=== PATIENT | male | born 1980 | race Caucasian/White ===

== ENCOUNTER 2023-08-15 06:04 | Emergency (ER) | payer MEDICAID ==
[~2023-08-15] VITALS: Ht 177.8 cm; Wt 117.9 kg
[2023-08-15] MEDS ORDERED: OXYC-133 PO (06:22)
[2023-08-15] MEDS ORDERED: ATOR10TA PO (06:22)
[2023-08-15] MEDS ORDERED: GABA-532 PO (06:22)
[2023-08-15] MEDS ORDERED: GABA-536 PO (06:22)
[2023-08-15] MEDS ORDERED: KETOROLAC TROMETHAMINE 60 MG INJ IM ONE (06:57)
[2023-08-15] MEDS: KETOROLAC TROMETHAMINE 60 MG INJ IM ONE (07:04)
[2023-08-15] MEDS ORDERED: LORAZEPAM 1 MG TABLET ONE (07:12)
[2023-08-15] MEDS ORDERED: OXYCODONE/APAP 5-325 MG TABLET ONE ×2 (07:28→12:37)
[2023-08-15] MEDS ORDERED: GABAPENTIN 100 MG CAPSULE ONE (07:28)
[2023-08-15] MEDS: GABAPENTIN 100 MG CAPSULE PO ONE (07:30)
[2023-08-15] MEDS: OXYCODONE/APAP 5-325 MG TABLET PO ONE ×2 (07:30→11:15)
[2023-08-15] MEDS: LORAZEPAM 0.5 MG TABLET PO ONE (07:31)
[2023-08-15] MEDS ORDERED: DEXAMETHASONE SOD PHOSPHATE 4 MG INJ ONE (09:57)
[2023-08-15] MEDS ORDERED: ONDANSETRON 4 MG/2 ML VIAL ONE (10:43)
[2023-08-15] MEDS ORDERED: MORPHINE SULFATE 2 MG/1 ML DISP.SYRIN ONE ×2 (10:43→12:51)
[2023-08-15] MEDS ORDERED: MORPHINE SULFATE 4 MG/1 ML DISP.SYRIN ONE (12:50)
[2023-08-15] MEDS: MORPHINE SULFATE 4 MG/1 ML DISP.SYRIN IV ONE (12:51)
[2023-08-15 12:58] LABS: BASOPHILS # (AUTO) 0.1 K/UL (0.0-0.2); BASOPHILS % (AUTO) 0.5 % (0.0-2.0); EOSINOPHILS % (AUTO) 0.2 % (0.0-7.0); HEMATOCRIT 45.1 % (36.7-47.1); HEMOGLOBIN 15.1 g/dL (12.5-16.3); LYMPHOCYTES # (AUTO) 1.5 K/uL (0.8-4.8); LYMPHOCYTES % (AUTO) 16.4 % (20.5-51.5); MEAN CORPUSCULAR HGB CONC 34 g/dL (32.5-36.3); MEAN CORPUSCULAR VOLUME 89.2 fL (73.0-96.2); MONOCYTES # (AUTO) 0.4 K/uL (0.1-1.30); MONOCYTES % (AUTO) 4.8 % (0.0-11.0); NEUTROPHILS # (AUTO) 7.3 K/uL (1.8-8.9); NEUTROPHILS % (AUTO) 78.1 % (38.5-71.5); PLATELET COUNT (AUTO) 295 K/uL (152-348); RED BLOOD CELL COUNT(AUTO) 5.05 MIL/uL (4.06-5.63); WHITE BLOOD COUNT (AUTO) 9.4 K/uL (3.6-10.2)
[2023-08-15 13:01] LABS: ALBUMIN 4.2 g/dL (3.4-5.0); BILIRUBIN,TOTAL 1.5 mg/dL (0.2-1.0); CREATININE 0.8 mg/dL (0.6-1.3); POTASSIUM 4.4 mmol/L (3.5-5.1); TOTAL PROTEIN, SERUM 7.9 g/dL (6.4-8.2)
[2023-08-15 13:02] LABS: CALCIUM 9.5 mg/dL (8.5-10.1)
[2023-08-15] MEDS ORDERED: OXYC-128 PO (15:22)
[2023-08-15] MEDS ORDERED: IBUP-1955 PO (15:22)
[2023-08-15] MEDS ORDERED: LORA0.5T48 PO (15:39)
[2023-08-15 15:57] VITALS: BP 133/70; TEMP 98; O2SAT 99
== END 2023-08-15 16:04 | disposition home or self-care (01) ==
LOC: ER 06:04
DX: M54.50 Low back pain, unspecified (principal); E78.5 Hyperlipidemia, unspecified; Z79.899 Other long term (current) drug therapy
CPT/HCPCS: 99284; 96374; 97161; 97530; 97116; 80061; 80053; 85025; 36415; 96372; J1100; J1885; J2405; J2270 ×3; A4606; A4663

== ENCOUNTER 2023-09-09 00:01 | Emergency (ER) | payer BC, MEDICAID ==
[~2023-09-09] VITALS: Ht 177.8 cm; Wt 113.4 kg
[~2023-09-09 00:01] MED LIST: ATOR10TA PO; GABA-532 PO; GABA-536 PO; IBUP-1955 PO; LORA0.5T48 PO; OXYC-128 PO; OXYC-133 PO
[2023-09-09] MEDS ORDERED: ASPIRIN 81 MG TAB.CHEW ONE (00:25)
[2023-09-09] MEDS ORDERED: NITROGLYCERIN OINT 1 GM PACKET TP ONE (00:25)
[2023-09-09] MEDS ORDERED: NITROGLYCERIN 0.4 MG/TAB BOTTLE SL ONE (00:25)
[2023-09-09] MEDS: NITROGLYCERIN 0.4 MG/TAB BOTTLE SL ONE ×2 (00:31→02:19)
[2023-09-09] MEDS: NITROGLYCERIN OINT 1 GM PACKET TP ONE (00:31)
[2023-09-09] MEDS: ASPIRIN 81 MG TAB.CHEW PO ONE (00:31)
[2023-09-09] MEDS ORDERED: ACETAMINOPHEN 500 MG TABLET ONE ×2 (00:33→03:48)
[2023-09-09] MEDS: ACETAMINOPHEN 500 MG TABLET PO ONE ×2 (00:37→04:06)
[2023-09-09 00:43] LABS: BASOPHILS # (AUTO) 0.1 K/UL (0.0-0.2); BASOPHILS % (AUTO) 0.6 % (0.0-2.0); DIFFERENTIAL COMMENT 1; EOSINOPHILS # (AUTO) 0.1 K/uL (0.0-0.7); EOSINOPHILS % (AUTO) 1.3 % (0.0-7.0); HEMATOCRIT 40.7 % (36.7-47.1); HEMOGLOBIN 13.9 g/dL (12.5-16.3); LYMPHOCYTES # (AUTO) 1.9 K/uL (0.8-4.8); LYMPHOCYTES % (AUTO) 20.9 % (20.5-51.5); MEAN CORPUSCULAR HEMOGLOBIN 30.1 uug (23.8-33.4); MEAN CORPUSCULAR HGB CONC 34 g/dL (32.5-36.3); MEAN CORPUSCULAR VOLUME 88.1 fL (73.0-96.2); MONOCYTES # (AUTO) 0.9 K/uL (0.1-1.30); MONOCYTES % (AUTO) 10.1 % (0.0-11.0); NEUTROPHILS % (AUTO) 67.1 % (38.5-71.5); PLATELET COUNT (AUTO) 358 K/uL (152-348); RED BLOOD CELL COUNT(AUTO) 4.62 MIL/uL (4.06-5.63); RED CELL DISTRIBUTION WIDTH 12.1 % (12.1-16.2); WHITE BLOOD COUNT (AUTO) 8.9 K/uL (3.6-10.2)
[2023-09-09 00:51] LABS: CALCIUM 9.3 mg/dL (8.5-10.1); CARBON DIOXIDE 30 mmol/L (21-32); CHLORIDE 102 mmol/L (98-107); CREATININE 0.7 mg/dL (0.6-1.3); GLUCOSE 113 mg/dL (74-106); POTASSIUM 3.7 mmol/L (3.5-5.1); SODIUM SERUM 139 mmol/L (136-145); UREA NITROGEN, BLOOD 9 mg/dL (7-18)
[2023-09-09 01:04] LABS: ALANINE AMINOTRANSFERASE 26 U/L (16-63); ALBUMIN 3.6 g/dL (3.4-5.0); ALKALINE PHOSPHATASE 63 U/L (50-136); ASPARTATE AMINOTRANSFERASE 20 U/L (15-37); BILIRUBIN,DIRECT 0.1 mg/dL (0.0-0.2); BILIRUBIN,TOTAL 0.8 mg/dL (0.2-1.0); NT-PRO BNP 151 pg/mL (0-125); TOTAL PROTEIN, SERUM 7.7 g/dL (6.4-8.2)
[2023-09-09] MEDS ORDERED: LORAZEPAM 2 MG/1 ML VIAL ONE ×2 (02:01→03:46)
[2023-09-09] MEDS: LORAZEPAM 2 MG/1 ML VIAL IV ONE ×2 (02:04→04:06)
[2023-09-09] MEDS ORDERED: MAG HYDROX/AL HYDROX/SIMETH 30 ML LIQUID UDC ONE (02:15)
[2023-09-09 02:19] VITALS: BP 115/83
[2023-09-09] MEDS: MAG HYDROX/AL HYDROX/SIMETH 30 ML LIQUID UDC PO ONE (02:19)
[2023-09-09] MEDS ORDERED: ENOXAPARIN SODIUM 60 MG/0.6 ML DISP.SYRIN SQ ONE (03:48)
[2023-09-09] MEDS ORDERED: HYDROCODONE/APAP 5-325MG TABLET ONE (03:49)
[2023-09-09] MEDS: ENOXAPARIN SODIUM 100 MG/ML DISP.SYRIN SQ ONE (04:05)
[2023-09-09] MEDS: HYDROCODONE/APAP 5-325MG TABLET PO ONE (04:06)
[2023-09-09 08:30] VITALS: O2SAT 96
[2023-09-09] MEDS ORDERED: LORAZEPAM 0.5 MG TABLET ONE (08:36)
[2023-09-09] MEDS: LORAZEPAM 0.5 MG TABLET PO ONE (08:40)
== END 2023-09-09 08:41 | disposition short-term general hospital (02) ==
LOC: ER 00:06
DX: I21.9 Acute myocardial infarction, unspecified (principal); Z79.899 Other long term (current) drug therapy; Z20.822 Contact with and (suspected) exposure to COVID-19
CPT/HCPCS: 99285; 96374; 71045; 87426; 80076; 80048; 83880; 85025; 84484 ×3; 36415; 93005 ×4; 96376; 96372; J1650; J2060 ×2; A4606; A4663; A9150